=== PATIENT | female | born 1945 | race Caucasian/White ===

== ENCOUNTER 2021-05-26 11:15 | Outpatient (CLI) | payer MEDICARE | END 2021-05-26 11:16 | disposition home or self-care (01) | LOC: BICRAD 11:15 | PROVIDERS: ATTEND Internal Medicine Critical Care Medicine | DX: R06.00 Dyspnea, unspecified (principal) | CPT/HCPCS: 71046 ==

== ENCOUNTER 2021-06-15 23:16 | Inpatient (IN) | payer MEDICARE ==
[2021-06-16] MEDS ORDERED: Ondansetron PF 4 MG/2 ML Vial ONE (00:27)
[2021-06-16 00:53] LABS: Hemoglobin 7.6 g/dL (12.0-16.0); Mean Corpuscular Hemoglobin 19.4 pg (27.0-31.0); Mean Corpuscular Volume 67.1 fL (78.0-98.0); Mean Platelet Volume 9.3 fL (7.4-10.4); Platelet Count 443 thou/uL (130-400); RBC Distribution Width 18.9 % (11.5-14.5); White Blood Cell (WBC) Count 8.4 thou/uL (4.8-10.8)
[2021-06-16 01:06] LABS: #Eosinphils 0.2 thou/uL (0.0-0.7); #Lymphocytes 1.1 thou/uL (1.20-3.40); #Monocytes 0.6 thou/uL (0.11-0.59); #Neutrophils 6.6 thou/uL (1.40-6.50); %Basophils 0.4 % (0.0-1.0); %Eosinophils 1.8 % (0.0-10.0); %Lymphocytes 12.4 % (21.0-51.0); %Monocytes 6.6 % (0.0-10.0); %Neutrophils 78.7 % (42.0-75.0)
[2021-06-16 01:07] LABS: Hypochromia SLIGHT = 6-15 cells (100X) (0-5/hpf); MDiff Complete? YES; Microcytosis SLIGHT = 6-15 cells (100X) (0-5/hpf)
[2021-06-16 01:14] LABS: ALT (SGPT) 37 U/L (8-55); AST (SGOT) 46 U/L (5-34); Albumin 3.9 g/dL (3.4-4.8); Alkaline Phosphatase 60 U/L (40-110); Anion Gap 11 mmol/L (10-20); BUN (Urea Nitrogen) 13 mg/dL (9.8-20.1); Bilirubin, Total 0.4 mg/dL (0.2-1.2); Calc. Creatinine Clearance 0 mL/min (70-130); Calcium 9.2 mg/dL (7.8-10.44); Carbon Dioxide 26 mmol/L (23-31); Chloride 98 mmol/L (98-107); Globulin 3.8 g/dL (2.4-3.5); Glucose 113 mg/dL (83-110); Lipase 32 U/L (8-78); Potassium 3.7 mmol/L (3.5-5.1); Protein, Total 7.7 g/dL (5.8-8.1); Sodium 131 mmol/L (136-145)
[2021-06-16] MEDS ORDERED: Morphine 2 MG/ML VIAL ONE (01:41)
[2021-06-16] MEDS ORDERED: Ibuprofen 200 MG TAB ONE (01:43)
[2021-06-16 03:02] LABS: Bacteria/HPF None Seen HPF (None Seen); Bilirubin Negative (Negative); Blood, Urine Trace (Negative); Clarity Clear (Clear); Glucose, Urine (Dipstick) Normal (Negative); Ketone, Urine 40 mg/dL (Negative); Leukocyte 500 Leu/uL (Negative); Nitrite Negative (Negative); Protein, Urine (Dipstick) 20 mg/dL (Neg-Trace); Specific Gravity, Urine 1.042 (1.002-1.036); Squamous Epithelial 0-3 HPF (0-3); Urobilinogen Normal mg/dL (Less than 2); WBC/HPF Greater than 50 HPF (0-3)
[2021-06-16] MEDS ORDERED: cefTRIAXone\\ROCEPHIN 1 GM VIAL ONE (04:14)
[2021-06-16 06:32] LABS: SARS-CoV-2 NAA Rapid Test Not Detected (NotDetected)
[2021-06-16 08:28] LABS: Anion Gap 10 mmol/L (10-20); BUN (Urea Nitrogen) 12 mg/dL (9.8-20.1); Calc. Creatinine Clearance 0 mL/min (70-130); Calcium 8.5 mg/dL (7.8-10.44); Carbon Dioxide 27 mmol/L (23-31); Chloride 99 mmol/L (98-107); Glucose 99 mg/dL (83-110); Potassium 4.1 mmol/L (3.5-5.1); Sodium 132 mmol/L (136-145)
[2021-06-16] MEDS ORDERED: Morphine 2 MG/ML VIAL SLOW IVP PRN (08:29)
[2021-06-16 08:33] LABS: Troponin I Less than 0.010 ng/mL (< 0.028)
[2021-06-16 09:02] VITALS: BMI 25.7
[2021-06-16] MEDS ORDERED: Iopamidol-370 76% 500 ML 1 ML ONE (09:15)
[2021-06-16 09:23] LABS: #Basophils 0.1 thou/uL (0.0-0.2); #Eosinphils 0.2 thou/uL (0.0-0.7); #Lymphocytes 1.2 thou/uL (1.20-3.40); #Monocytes 0.8 thou/uL (0.11-0.59); #Neutrophils 7.7 thou/uL (1.40-6.50); %Basophils 0.6 % (0.0-1.0); %Eosinophils 1.7 % (0.0-10.0); %Lymphocytes 11.6 % (21.0-51.0); %Monocytes 8.2 % (0.0-10.0); %Neutrophils 77.9 % (42.0-75.0); Elliptocytes SLIGHT = 2-5 cells (100X) (0-1/hpf); Hemoglobin 7.1 g/dL (12.0-16.0); Hypochromia MODERATE=16-30 cells (100X) (0-5/hpf); MDiff Complete? YES; Mean Corpuscular HGB CONC 28.7 g/dL (32.0-36.0); Mean Corpuscular Hemoglobin 19.3 pg (27.0-31.0); Mean Corpuscular Volume 67.3 fL (78.0-98.0); Mean Platelet Volume 9.2 fL (7.4-10.4); Microcytosis MODERATE=15-30 cells (100X) (0-5/hpf); Platelet Count 391 thou/uL (130-400); Platelet Morphology Comment Appears Adequate; Polychromasia SLIGHT = 2-3 cells (100X) (0-2/hpf); RBC Distribution Width 18.9 % (11.5-14.5); Red Blood Cell (RBC) Count 3.66 mill/uL (4.20-5.40); White Blood Cell (WBC) Count 9.9 thou/uL (4.8-10.8)
[2021-06-16] MEDS ORDERED: Acetaminophen 650 MG Suppository PR PRN (09:41)
[2021-06-16] MEDS ORDERED: Acetaminophen 325 MG TAB PO PRN (09:41)
[2021-06-16] MEDS ORDERED: Ondansetron ODT 4 MG TAB PO PRN (09:41)
[2021-06-16] MEDS ORDERED: Ondansetron PF 4 MG/2 ML Vial IVP PRN (09:41)
[2021-06-16] MEDS: traMADol HCl 50 MG TAB PO PRN ×2 (09:46→15:15)
[2021-06-16 09:48] LABS: Iron Binding Capacity, Total 475 mcg/dL (265-497)
[2021-06-16 09:49] LABS: Iron 12 ug/dL (50-170)
[2021-06-16] MEDS ORDERED: Lorazepam 1 MG TAB PO PRN (10:22)
[2021-06-16] MEDS: Nitrofurantoin Monohyd/M-Cryst 100 MG CAP PO SCH (21:09)
[2021-06-16] MEDS: Sodium Chloride 0.9% 1,000 ML IV SCH (21:09)
[2021-06-17] MEDS: traMADol HCl 50 MG TAB PO PRN ×4 (00:33→22:25)
[2021-06-17 07:21] LABS: Anion Gap 12 mmol/L (10-20); BUN (Urea Nitrogen) 10 mg/dL (9.8-20.1); Calc. Creatinine Clearance 78 mL/min (70-130); Calcium 8.3 mg/dL (7.8-10.44); Carbon Dioxide 27 mmol/L (23-31); Chloride 98 mmol/L (98-107); Glucose 86 mg/dL (83-110); Potassium 4.1 mmol/L (3.5-5.1); Sodium 133 mmol/L (136-145)
[2021-06-17] MEDS: Nitrofurantoin Monohyd/M-Cryst 100 MG CAP PO SCH ×2 (07:59→20:51)
[2021-06-17 08:29] LABS: #Eosinphils 0.2 thou/uL (0.0-0.7); #Monocytes 0.8 thou/uL (0.11-0.59); #Neutrophils 5.6 thou/uL (1.40-6.50); %Basophils 0.6 % (0.0-1.0); %Eosinophils 2.8 % (0.0-10.0); %Lymphocytes 13.2 % (21.0-51.0); %Monocytes 10.2 % (0.0-10.0); %Neutrophils 73.2 % (42.0-75.0); Hemoglobin 6.5 g/dL (12.0-16.0); Hypochromia MODERATE=16-30 cells (100X) (0-5/hpf); MDiff Complete? YES; Mean Corpuscular HGB CONC 28.6 g/dL (32.0-36.0); Mean Corpuscular Hemoglobin 19.3 pg (27.0-31.0); Mean Corpuscular Volume 67.6 fL (78.0-98.0); Mean Platelet Volume 8.8 fL (7.4-10.4); Microcytosis MODERATE=15-30 cells (100X) (0-5/hpf); Ovalocytes SLIGHT = 2-5 cells (100X) (0-1/hpf); Platelet Count 409 thou/uL (130-400); Platelet Morphology Comment Appears Increased; Polychromasia MODERATE = 3-4 cells (100X) (0-2/hpf); RBC Distribution Width 18.6 % (11.5-14.5); Red Blood Cell (RBC) Count 3.38 mill/uL (4.20-5.40); White Blood Cell (WBC) Count 7.6 thou/uL (4.8-10.8)
[2021-06-17] MEDS: Sodium Chloride 0.9% 1,000 ML IV SCH ×2 (09:20→20:51)
[2021-06-17 15:45] LABS: Hemoglobin 8.2 g/dL (12.0-16.0)
[2021-06-17] MEDS ORDERED: GoLYTELY 4,000 ml Bottle PO SCH (17:00)
[2021-06-18] MEDS ORDERED: Ferrous Sulfate 325 MG TAB PO SCH (08:00)
[2021-06-18] MEDS: Nitrofurantoin Monohyd/M-Cryst 100 MG CAP PO SCH ×2 (08:46→21:16)
[2021-06-18] MEDS: traMADol HCl 50 MG TAB PO PRN ×2 (08:46→16:16)
[2021-06-18] MEDS ORDERED: Fentanyl 100 MCG/2 ML VIAL ONE (11:57)
[2021-06-18] MEDS ORDERED: Esmolol 100 MG/10 ML VIAL ONE (12:11)
[2021-06-18] MEDS ORDERED: Metoprolol Tartrate 5 MG/5 ML VIAL ONE ×2 (12:11→12:15)
[2021-06-18] MEDS ORDERED: Lidocaine 1% PF 5 ML VIAL ONE (12:11)
[2021-06-18] MEDS ORDERED: PROPOFOL 200 MG/20 ML VIAL ONE (12:11)
[2021-06-18] MEDS ORDERED: Ondansetron HCl/PF 4 MG/2 ML Vial IVP PRN (12:53)
[2021-06-18] MEDS ORDERED: Promethazine HCl 25 MG/ML VIAL IM PRN (12:53)
[2021-06-18] MEDS ORDERED: HYDROmorphone 2 MG/ML VIAL SLOW IVP PRN (12:53)
[2021-06-18] MEDS ORDERED: Promethazine HCl 25 MG/ML VIAL IVPB PRN (12:53)
[2021-06-18] MEDS ORDERED: Iron, Sodium Ferric Gluconate 250 MG in Sodium Chloride 0.9% 250 ML 250 ML IVPB SCH (13:00)
[2021-06-18] MEDS: Sodium Chloride 0.9% 1,000 ML IV SCH (13:05)
[2021-06-18 17:17] LABS: Hemoglobin 8.7 g/dL (12.0-16.0)
[2021-06-19] MEDS: traMADol HCl 50 MG TAB PO PRN ×4 (00:34→20:49)
[2021-06-19] MEDS: Nitrofurantoin Monohyd/M-Cryst 100 MG CAP PO SCH ×3 (00:34→20:48)
[2021-06-19 06:37] LABS: Hemoglobin 8.4 g/dL (12.0-16.0); Mean Corpuscular HGB CONC 29.7 g/dL (32.0-36.0); Mean Corpuscular Hemoglobin 21.2 pg (27.0-31.0); Mean Corpuscular Volume 71.4 fL (78.0-98.0); Mean Platelet Volume 9.7 fL (7.4-10.4); Platelet Count 375 thou/uL (130-400); RBC Distribution Width 21.4 % (11.5-14.5); Red Blood Cell (RBC) Count 3.95 mill/uL (4.20-5.40); White Blood Cell (WBC) Count 9.1 thou/uL (4.8-10.8)
[2021-06-19 06:55] LABS: ALT (SGPT) 38 U/L (8-55); AST (SGOT) 40 U/L (5-34); Albumin 3.3 g/dL (3.4-4.8); Alkaline Phosphatase 55 U/L (40-110); Anion Gap 14 mmol/L (10-20); BUN (Urea Nitrogen) 8 mg/dL (9.8-20.1); Bilirubin, Total 0.4 mg/dL (0.2-1.2); Calc. Creatinine Clearance 74 mL/min (70-130); Calcium 8.1 mg/dL (7.8-10.44); Carbon Dioxide 25 mmol/L (23-31); Chloride 100 mmol/L (98-107); Globulin 3.2 g/dL (2.4-3.5); Glucose 97 mg/dL (83-110); Protein, Total 6.5 g/dL (5.8-8.1); Sodium 135 mmol/L (136-145)
[2021-06-19] MEDS: Ferrous Sulfate 325 MG TAB PO SCH ×3 (07:51→20:51)
[2021-06-19] MEDS ORDERED: Metoprolol Tartrate 25 MG TAB PO SCH (22:45)
[2021-06-20 06:08] LABS: Mean Corpuscular HGB CONC 29.7 g/dL (32.0-36.0); Mean Corpuscular Hemoglobin 21.5 pg (27.0-31.0); Mean Corpuscular Volume 72.5 fL (78.0-98.0); Mean Platelet Volume 9.2 fL (7.4-10.4); Platelet Count 343 thou/uL (130-400); RBC Distribution Width 22.2 % (11.5-14.5); White Blood Cell (WBC) Count 8.5 thou/uL (4.8-10.8)
[2021-06-20] MEDS: traMADol HCl 50 MG TAB PO PRN (06:22)
[2021-06-20 06:28] LABS: ALT (SGPT) 30 U/L (8-55); AST (SGOT) 22 U/L (5-34); Albumin 3.3 g/dL (3.4-4.8); Alkaline Phosphatase 51 U/L (40-110); Anion Gap 8 mmol/L (10-20); BUN (Urea Nitrogen) 7 mg/dL (9.8-20.1); Bilirubin, Total 0.4 mg/dL (0.2-1.2); Calc. Creatinine Clearance 79 mL/min (70-130); Calcium 8.6 mg/dL (7.8-10.44); Carbon Dioxide 32 mmol/L (23-31); Chloride 99 mmol/L (98-107); Glucose 93 mg/dL (83-110); Potassium 3.3 mmol/L (3.5-5.1); Protein, Total 6.3 g/dL (5.8-8.1); Sodium 136 mmol/L (136-145)
[2021-06-20] MEDS: Nitrofurantoin Monohyd/M-Cryst 100 MG CAP PO SCH (07:34)
[2021-06-20] MEDS: Ferrous Sulfate 325 MG TAB PO SCH (07:34)
[2021-06-20 08:28] VITALS: BP 148/89; TEMP 97.7
== END 2021-06-20 12:21 | disposition home or self-care (01) | DRG 543 ==
LOC: ERS 23:16 → ERHOLD 06-16 04:09 → T4-A 06-16 07:32 → OBSVTOIN 06-17 09:04
PROVIDERS: ADMIT Student in an Organized Health Care Education/Training Program; ATTEND Family Medicine
PROC: 30233N1 Transfusion of Nonautologous Red Blood Cells into Peripheral Vein, Percutaneous Approach (ICD-10-PCS; 2021-06-17)
PROC: 0DB68ZX Excision of Stomach, Via Natural or Artificial Opening Endoscopic, Diagnostic (ICD-10-PCS; principal; 2021-06-20)
PROC: 0DBK8ZX Excision of Ascending Colon, Via Natural or Artificial Opening Endoscopic, Diagnostic (ICD-10-PCS; 2021-06-20)
PROC: 0DBL8ZX Excision of Transverse Colon, Via Natural or Artificial Opening Endoscopic, Diagnostic (ICD-10-PCS; 2021-06-20)
DX: M80.08XA Age-related osteoporosis with current pathological fracture, vertebra(e), initial encounter for fracture (principal); D62 Acute posthemorrhagic anemia; N30.00 Acute cystitis without hematuria; J44.9 Chronic obstructive pulmonary disease, unspecified; I10 Essential (primary) hypertension; K22.2 Esophageal obstruction; K26.9 Duodenal ulcer, unspecified as acute or chronic, without hemorrhage or perforation; K63.5 Polyp of colon; K57.30 Diverticulosis of large intestine without perforation or abscess without bleeding; Z20.822 Contact with and (suspected) exposure to COVID-19; Z99.81 Dependence on supplemental oxygen; Z88.5 Allergy status to narcotic agent; Z88.0 Allergy status to penicillin; Z79.51 Long term (current) use of inhaled steroids; Z79.899 Other long term (current) drug therapy; Z90.710 Acquired absence of both cervix and uterus; Z80.0 Family history of malignant neoplasm of digestive organs
CPT/HCPCS: 36415; 36416; 36430; 71045; 71275; 72072; 80048; 80053; 81003; 81015; 82274; 82607; 82728; 82746; 83540; 83550; 83690; 84484; 85014; 85018; 85025; 85027; 86850; 86900; 86901; 87086; 88305; 88312; 96365; 96375; G0378; J0696; J2270; J2405; J2704; J2916; J3010; J7050; J7620; P9016; Q9967; U0002

== ENCOUNTER 2021-07-17 12:30 | Outpatient (CLI) | payer MEDICARE | END 2021-07-17 12:31 | disposition home or self-care (01) | LOC: TBSIIMAG 12:30 | PROVIDERS: ATTEND Neurological Surgery | DX: S32.000A Wedge compression fracture of unspecified lumbar vertebra, initial encounter for closed fracture (principal) | CPT/HCPCS: 72072; 72100 ==